=== PATIENT | female | born 1995 | race Native Hawaiian/Other Pacific Islander ===

== ENCOUNTER 2019-08-06 15:48 | Outpatient (CLI) | payer OTHER | END 2019-08-06 21:15 | disposition home or self-care (01) | LOC: RAD 15:48 | DX: M25.561 Pain in right knee (principal); M25.571 Pain in right ankle and joints of right foot; M25.471 Effusion, right ankle; M79.604 Pain in right leg; W19.XXXA Unspecified fall, initial encounter ==